=== PATIENT | female | born 1970 | race African-American/Black ===

== ENCOUNTER 2024-02-03 12:14 | Observation (INO) | payer OTHER ==
[2024-02-03 12:46] LABS: #Basophils 0.05 10x3/uL (0.0-0.2); %Basophils 0.8 % (0.0-1.0); %Eosinophils 5.3 % (0.0-10.0); %Lymphocytes 30.1 % (21.0-51.0); %Monocytes 5.6 % (0.0-10.0); Hematocrit 40.3 % (36.0-47.0); Hemoglobin 12.9 g/dL (12.0-16.0); Mean Corpuscular Hemoglobin 27.3 pg (27.0-31.0); Mean Corpuscular Volume 85.4 fL (78.0-98.0); Mean Platelet Volume 10.6 fL (7.4-10.4); Platelet Count 226 10x3/uL (130-400); RBC Distribution Width 14.1 % (11.5-14.5); Red Blood Cell (RBC) Count 4.72 mill/uL (4.20-5.40)
[2024-02-03 13:04] LABS: ALT (SGPT) 24 U/L (8-55); AST (SGOT) 16 U/L (5-34); Albumin 3.4 g/dL (3.5-5.0); Alkaline Phosphatase 76 U/L (40-110); Anion Gap 14 mmol/L (10-20); BUN (Urea Nitrogen) 10 mg/dL (9.8-20.1); Bilirubin, Total 0.3 mg/dL (0.2-1.2); Calc. Creatinine Clearance 0 mL/min (70-130); Calcium 9.1 mg/dL (7.8-10.44); Carbon Dioxide 22 mmol/L (22-29); Chloride 109 mmol/L (98-107); Estimated GFR 72; Glucose 185 mg/dL (70-105); Potassium 3.7 mmol/L (3.5-5.1); Protein, Total 7.4 g/dL (6.0-8.3); Sodium 141 mmol/L (136-145)
[2024-02-03] MEDS ORDERED: Nitroglycerin 2% Ointment 1 INCH/1 GM Packet ONE (13:05)
[2024-02-03] MEDS ORDERED: Aspirin Chewable 81 MG TAB ONE (13:06)
[2024-02-03 13:09] LABS: Troponin I Less than 0.010 ng/mL (< 0.028)
[2024-02-03] MEDS ORDERED: Morphine 2 MG/ML VIAL ONE ×2 (13:29→14:45)
[2024-02-03] MEDS ORDERED: hydrALAZINE 20 MG/ML VIAL ONE (13:51)
[2024-02-03 15:58] LABS: Troponin I Less than 0.010 ng/mL (< 0.028)
[2024-02-03 16:02] VITALS: BMI 33.5
[2024-02-03] MEDS ORDERED: Nitroglycerin 0.4 MG TAB (25 Tab Bottle) SL PRN (17:29)
[2024-02-03] MEDS ORDERED: Ondansetron PF 4 MG/2 ML Vial IVP PRN (17:32)
[2024-02-03] MEDS ORDERED: Calcium Carbonate 500 MG ChewTAB PO PRN (17:32)
[2024-02-03] MEDS ORDERED: Bisacodyl 5 MG TAB PO PRN (17:32)
[2024-02-03] MEDS ORDERED: Ondansetron ODT 4 MG TAB PO PRN (17:32)
[2024-02-03] MEDS ORDERED: Senokot S 8.6-50 MG TAB PO PRN (17:32)
[2024-02-03] MEDS ORDERED: Melatonin 3 MG TAB PO PRN (17:34)
[2024-02-03] MEDS: Acetaminophen 325 MG TAB PO PRN (19:41)
[2024-02-03] MEDS: Amlodipine 5 MG TAB PO SCH (19:42)
[2024-02-03 20:57] LABS: Troponin I Less than 0.010 ng/mL (< 0.028)
[2024-02-04 01:42] LABS: Amphetamine Not Detected (NotDetected); Barbiturates Screen Not Detected (NotDetected); Benzodiazepine Screen Not Detected (NotDetected); Cocaine Metabolite Screen Detected (NotDetected); Methadone Not Detected (NotDetected); Methamphetamine Not Detected (NotDetected); Opiate Screen Detected (NotDetected); Oxycodone Screen Not Detected (NotDetected); Phencyclidine (PCP) Not Detected (NotDetected); THC/Cannabinoid Screen Detected (NotDetected); Tricyclic Screen Not Detected (NotDetected)
[2024-02-04] MEDS: Amlodipine 5 MG TAB PO SCH ×2 (01:59→08:28)
[2024-02-04] MEDS: hydrALAZINE 20 MG/ML VIAL SLOW IVP PRN (04:19)
[2024-02-04 05:34] LABS: #Basophils 0.04 10x3/uL (0.0-0.2); %Basophils 0.4 % (0.0-1.0); %Eosinophils 0.6 % (0.0-10.0); %Lymphocytes 23.3 % (21.0-51.0); %Monocytes 5.4 % (0.0-10.0); %Neutrophils 70.1 % (42.0-75.0); Hematocrit 43.9 % (36.0-47.0); Hemoglobin 14.1 g/dL (12.0-16.0); Mean Corpuscular HGB CONC 32.1 g/dL (32.0-36.0); Mean Corpuscular Hemoglobin 26.9 pg (27.0-31.0); Mean Corpuscular Volume 83.8 fL (78.0-98.0); Mean Platelet Volume 9.9 fL (7.4-10.4); Platelet Count 273 10x3/uL (130-400); Red Blood Cell (RBC) Count 5.24 mill/uL (4.20-5.40)
[2024-02-04 05:47] LABS: Anion Gap 15 mmol/L (10-20); BUN (Urea Nitrogen) 10 mg/dL (9.8-20.1); Calc. Creatinine Clearance 148 mL/min (70-130); Calcium 9.3 mg/dL (7.8-10.44); Carbon Dioxide 22 mmol/L (22-29); Cardiac Risk 4.7 (Less than 4.5); Chloride 106 mmol/L (98-107); Cholesterol 221 mg/dl (< 200 Desired); Estimated GFR 95; Glucose 110 mg/dL (70-105); HDL Cholesterol 47 mg/dL (>60 Neg Risk); LDL Cholesterol, Calculated 155 mg/dL; Potassium 3.3 mmol/L (3.5-5.1); Sodium 140 mmol/L (136-145); Triglycerides 93 mg/dL (Less than 150)
[2024-02-04] MEDS: Aspirin Chewable 81 MG TAB PO SCH (08:27)
[2024-02-04] MEDS ORDERED: hydrALAZINE 10 MG TAB PO PRN (11:43)
[2024-02-04] MEDS ORDERED: Regadenoson 0.4 MG/5 ML SYRINGE ONE (11:49)
[2024-02-04 15:42] VITALS: BP 180/86; TEMP 98.1
[2024-02-06] MEDS ORDERED: FLU (Fluarix Triv) TS24-25(6MOS UP)/PF 45 MCG/0.5 ML Syringe IM ONE (19:15)
== END 2024-02-04 18:37 | disposition home or self-care (01) ==
LOC: ERS 12:14 → ERHOLD 14:49 → OBS 18:04
PROVIDERS: ADMIT Internal Medicine; ATTEND Internal Medicine
DX: R07.9 Chest pain, unspecified (principal); I10 Essential (primary) hypertension; E66.9 Obesity, unspecified; F19.10 Other psychoactive substance abuse, uncomplicated; Z85.850 Personal history of malignant neoplasm of thyroid; Z90.89 Acquired absence of other organs; Z87.891 Personal history of nicotine dependence
CPT/HCPCS: 36415; 71045; 80048; 80053; 80061; 80306; 84443; 84484; 85025; 93005; 93017; 94760; 96374; 96375; 96376; G0378; J0360; J2272; J2785